=== PATIENT | female | born 1985 | race Caucasian/White ===

== ENCOUNTER 2019-09-03 18:51 | Emergency (ER) | payer OTHER ==
[~2019-09-03] VITALS: Ht 165.1 cm; Wt 61.2 kg
== END 2019-09-03 22:12 | disposition home or self-care (01) ==
LOC: ER 18:51
DX: R07.89 Other chest pain (principal)

== ENCOUNTER 2022-01-19 09:39 | Emergency (ER) | payer OTHER ==
[~2022-01-19] VITALS: Ht 165.1 cm; Wt 61.2 kg
[2022-01-19] MEDS ORDERED: ZOLOFT100 MG PO (10:11)
== END 2022-01-19 17:25 | disposition home or self-care (01) ==
LOC: ER 09:39
DX: R07.89 Other chest pain (principal)